=== PATIENT | female | born 1955 | race Caucasian/White ===

== ENCOUNTER → 2020-11-05 | Outpatient (CLI) | payer BC, OTHER | LOC: HEART 5 12:55 | DX: R06.00 Dyspnea, unspecified (principal); R94.2 Abnormal results of pulmonary function studies; F17.210 Nicotine dependence, cigarettes, uncomplicated | CPT/HCPCS: 71046; 94010 ==

== ENCOUNTER → 2020-11-05 | Outpatient (CLI) | payer BC, OTHER | LOC: RAD 14:08 | DX: R06.00 Dyspnea, unspecified (principal); S22.008A Other fracture of unspecified thoracic vertebra, initial encounter for closed fracture; J43.9 Emphysema, unspecified; X58.XXXA Exposure to other specified factors, initial encounter | CPT/HCPCS: 71046 ==

== ENCOUNTER → 2021-03-31 | Outpatient (CLI) | payer BC, OTHER | LOC: EXRD 02-24 09:30 | DX: S22.000A Wedge compression fracture of unspecified thoracic vertebra, initial encounter for closed fracture (principal); M85.89 Other specified disorders of bone density and structure, multiple sites | CPT/HCPCS: 77080 ==

== ENCOUNTER → 2021-05-07 | Outpatient (CLI) | payer BC | LOC: HEART CORB 13:22 | DX: I25.5 Ischemic cardiomyopathy (principal) ==